=== PATIENT | male | born 1980 ===

== ENCOUNTER 2021-10-18 10:17 | Emergency (ER) | payer SELFPAY ==
[~2021-10-18] VITALS: Ht 182.9 cm; Wt 81.6 kg
[2021-10-18 10:26] VITALS: BP 129/54
== END 2021-10-18 11:37 | disposition left against medical advice (07) ==
LOC: EDBD 10:17 → ER 10:17
DX: M54.59 Other low back pain (principal); Z53.21 Procedure and treatment not carried out due to patient leaving prior to being seen by health care provider